=== PATIENT | female | born 1990 | race Caucasian/White ===

== ENCOUNTER 2019-11-06 17:12 | Emergency (ER) | payer MEDICAID, OTHER ==
[~2019-11-06] VITALS: Ht 162.6 cm; Wt 61.4 kg
[2019-11-06 17:19] VITALS: BP 128/78
[2019-11-06 18:13] LABS: URINE HCG POSITIVE (NEG)
[2019-11-06 18:38] LABS: CLARITY,URINE SLIGHTLY CLOUDY (Clear); COLOR,URINE YELLOW (Yellow); GLUCOSE, URINE NEGATIVE (Neg); KETONES,URINE NEGATIVE (Neg); LEUKOCYTE ESTERASE ,URINE LARGE (Neg); NITRITES, URINE NEGATIVE (Neg); OCCULT BLOOD,URINE NEGATIVE (Neg); PROTEIN,URINE NEGATIVE (Neg); UA COLLECTION TYPE CLN CATCH MIDSTREAM; UROBILINOGEN,URINE 0.2 E.U/dL (0.2-1.0)
[2019-11-06 18:53] LABS: BACTERIA,URINE 2+ /HPF (Neg); MUCUS STRANDS MANY /LPF (Neg); RBC,URINE NONE SEEN /HPF (0-2); SQUAMOUS EPITHELIAL CELL,UR MANY /LPF (FEW); WBC,URINE 0-4 /HPF (0-4)
== END 2019-11-06 18:35 | disposition home or self-care (01) ==
LOC: ER 17:12
DX: Z32.01 Encounter for pregnancy test, result positive (principal); R25.2 Cramp and spasm
CPT/HCPCS: 81001; 81025; 99283